=== PATIENT | male | born 1950 | race Caucasian/White ===

== ENCOUNTER 2017-09-01 11:25 | Emergency (ER) | payer BC, MEDICARE, OTHER ==
[~2017-09-01] VITALS: Ht 170.2 cm; Wt 77.1 kg
[~2017-09-01 11:25] MED LIST: CLON0.5T PO; LAMO5TAB3 PO; OXCA150T5 PO
--- NOTE | 2017-09-01 11:25 | NUR ---
C/O HYPERTENSION MANAGER WELDING AND LOW GRADE FEVER SINCE THIS AM. ETOH LAST NIGHT
[2017-09-01 12:29] LABS: BASOPHILS # (AUTO) 0.2 /CMM (0.0-0.2); BASOPHILS % (AUTO) 0.9 % (0.0-2.0); EOSINOPHILS % (AUTO) 0.2 % (0.0-6.0); HEMATOCRIT 41 % (39-51); HEMOGLOBIN 13.8 g/dL (13.5-17.5); LYMPHOCYTES # (AUTO) 1.3 /CMM (0.8-4.8); LYMPHOCYTES % (AUTO) 7.7 % (20.0-44.0); MEAN CORPUSCULAR HEMOGLOBIN 31 PG (26.0-33.0); MEAN CORPUSCULAR HGB CONC 34 g/dl (31.0-36.0); MEAN CORPUSCULAR VOLUME 90 fL (80-96); MONOCYTES % (AUTO) 5.9 % (2.0-12.0); NEUTROPHILS # (AUTO) 14.8 /CMM (1.8-8.9); NEUTROPHILS % (AUTO) 85.3 % (43.0-81.0); PLATELET COUNT (AUTO) 168 /CMM (150-450); RDW COEFFICIENT OF VARIATION 11.9 (11.5-15.0); RED BLOOD CELL COUNT(AUTO) 4.51 MIL/uL (4.5-6.0); WHITE BLOOD COUNT (AUTO) 17.3 K/uL (4.3-11.0)
[2017-09-01] MEDS ORDERED: IV NS 0.9% 1,000 ML BAG IV ONE (12:30)
[2017-09-01 12:40] LABS: CALCIUM, SERUM 9.3 mg/dL (8.5-10.1); CARBON DIOXIDE 25 mmol/L (21-32); CHLORIDE 101 mmol/L (98-107); CREATININE 1.2 mg/dL (0.6-1.3); GLUCOSE 115 mg/dL (74-106); POTASSIUM 3.7 mmol/L (3.5-5.1); SODIUM SERUM 136 mmol/L (136-145); UREA NITROGEN, BLOOD 24 mg/dL (7-18)
[2017-09-01 12:43] LABS: INR 0.89 (0.87-1.13); PROTHROMBIN TIME 9.3 SECS (9.5-12.7)
[2017-09-01 12:45] LABS: ALANINE AMINOTRANSFERASE 52 U/L (12-78); ALBUMIN 3.8 g/dL (3.4-5.0); ALKALINE PHOSPHATASE 58 U/L (46-116); ASPARTATE AMINOTRANSFERASE 44 U/L (15-37); BILIRUBIN,DIRECT 0.1 mg/dL (0.0-0.2); BILIRUBIN,TOTAL 0.7 mg/dL (0.2-1.0); TOTAL PROTEIN, SERUM 7.4 g/dL (6.4-8.2)
[2017-09-01 12:47] LABS: TROPONIN I < 0.017 ng/mL (0.00-0.056)
--- NOTE | 2017-09-01 12:58 | NUR ---
DUPLICATE ORDER FOR EKG DR GALVEZ AWARE
--- NOTE | 2017-09-01 13:19 | NUR ---
IV removed. Catheter intact and site benign. Pressure and 4x4 applied to site. No bleeding noted.
[2017-09-01 13:20] VITALS: BP 161/91
--- NOTE | 2017-09-01 13:20 | NUR ---
Patient discharged to home in stable condition. Written and verbal after care instructions given. Patient verbalizes understanding of instruction.
== END 2017-09-01 13:23 | disposition home or self-care (01) ==
LOC: ER 11:28
DX: J18.9 Pneumonia, unspecified organism (principal); R00.2 Palpitations; F10.10 Alcohol abuse, uncomplicated; I10 Essential (primary) hypertension; F17.200 Nicotine dependence, unspecified, uncomplicated
CPT/HCPCS: 36415; 71010; 80048; 80076; 84484; 85025; 85730; 93005 ×2; 96360; 99285; A4606 ×2; J7030; Z7610

== ENCOUNTER 2017-10-09 11:51 | Outpatient (CLI) | payer MEDICARE | END 2017-10-09 23:59 | disposition home or self-care (01) | LOC: RAD 11:51 | DX: I70.0 Atherosclerosis of aorta (principal) | CPT/HCPCS: 71046 ==

== ENCOUNTER 2018-01-05 12:59 | Emergency (ER) | payer MEDICARE, BC ==
[~2018-01-05] VITALS: Ht 165.1 cm; Wt 67.1 kg
[2018-01-05] MEDS ORDERED: ASPIRIN 325 MG TABLET ONE (13:20)
--- NOTE | 2018-01-05 13:25 | NUR ---
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 PT GOWNED AND PLACED ON CONT MONITORING. SKIN IS WARM AND NON DIAPHORETIC. RR EVEN AND UNLABORED. CALLED FOR STAT EKG. WILL CONT TO MONITOR
[2018-01-05] MEDS ORDERED: ASPIRIN 325 MG TABLET PO ONE (13:30)
[2018-01-05 13:35] LABS: BASOPHILS # (AUTO) 0.1 /CMM (0.0-0.2); BASOPHILS % (AUTO) 0.4 % (0.0-2.0); EOSINOPHILS % (AUTO) 0.2 % (0.0-6.0); HEMATOCRIT 39 % (39-51); HEMOGLOBIN 13.7 g/dL (13.5-17.5); LYMPHOCYTES # (AUTO) 1.8 /CMM (0.8-4.8); LYMPHOCYTES % (AUTO) 12.3 % (20.0-44.0); MEAN CORPUSCULAR HGB CONC 35 g/dl (31.0-36.0); MEAN CORPUSCULAR VOLUME 90 fL (80-96); MONOCYTES # (AUTO) 1.3 /CMM (0.1-1.30); MONOCYTES % (AUTO) 8.9 % (2.0-12.0); NEUTROPHILS # (AUTO) 11.5 /CMM (1.8-8.9); NEUTROPHILS % (AUTO) 78.2 % (43.0-81.0); PLATELET COUNT (AUTO) 189 /CMM (150-450); RDW COEFFICIENT OF VARIATION 13.3 (11.5-15.0); RED BLOOD CELL COUNT(AUTO) 4.38 MIL/uL (4.5-6.0); WHITE BLOOD COUNT (AUTO) 14.7 K/uL (4.3-11.0)
[2018-01-05 13:53] LABS: INR 0.96 (0.87-1.13)
[2018-01-05 14:13] LABS: CALCIUM, SERUM 9.1 mg/dL (8.5-10.1); CARBON DIOXIDE 24 mmol/L (21-32); CHLORIDE 103 mmol/L (98-107); CREATININE 1.1 mg/dL (0.6-1.3); GLUCOSE 96 mg/dL (74-106); POTASSIUM 3.8 mmol/L (3.5-5.1); SODIUM SERUM 139 mmol/L (136-145); UREA NITROGEN, BLOOD 22 mg/dL (7-18)
[2018-01-05 14:22] LABS: TROPONIN I < 0.017 ng/mL (0.00-0.056)
[2018-01-05 15:07] LABS: ALBUMIN 3.8 g/dL (3.4-5.0); BILIRUBIN,DIRECT 0.1 mg/dL (0.0-0.2); BILIRUBIN,TOTAL 0.5 mg/dL (0.2-1.0); TOTAL PROTEIN, SERUM 7.3 g/dL (6.4-8.2)
[2018-01-05 15:34] VITALS: BP 144/80
--- NOTE | 2018-01-05 15:34 | NUR ---
Patient does not wish to proceed with medical care recommended by Dr. saldana. Patient given information related to possible complications, up to and including , which could occur as a result of leaving the hospital at this time. Patient verbalizes understanding of risks involved due to leaving against medical advice. Patient has signed AMA form.
== END 2018-01-05 15:35 | disposition left against medical advice (07) ==
LOC: ER 13:07
DX: R07.89 Other chest pain (principal); I10 Essential (primary) hypertension; F17.200 Nicotine dependence, unspecified, uncomplicated; Z79.82 Long term (current) use of aspirin
CPT/HCPCS: 36415; 71045-TC; 80048-TC; 80076-TC; 83690-TC; 84484-TC; 85025-TC; 85730-TC; A4606; Z7610

== ENCOUNTER 2018-07-17 12:51 | Outpatient (CLI) | payer MEDICARE, BC | END 2018-07-17 23:59 | disposition home or self-care (01) | LOC: RAD 12:51 | DX: R07.81 Pleurodynia (principal) | CPT/HCPCS: 71100-TC ==

== ENCOUNTER 2019-01-22 11:07 | Outpatient (CLI) | payer MEDICARE, BC | END 2019-01-22 23:59 | disposition home or self-care (01) | LOC: CT 11:07 | DX: S09.90XA Unspecified injury of head, initial encounter (principal); G31.9 Degenerative disease of nervous system, unspecified; I67.2 Cerebral atherosclerosis; X58.XXXA Exposure to other specified factors, initial encounter; Y93.89 Activity, other specified; Y92.89 Other specified places as the place of occurrence of the external cause; Y99.8 Other external cause status | CPT/HCPCS: 70450-TC ==

== ENCOUNTER 2022-01-26 00:20 | Emergency (ER) | payer MEDICARE, BC ==
[~2022-01-26] VITALS: Ht 170.2 cm; Wt 79.4 kg
--- NOTE | 2022-01-26 00:35 | NUR ---
PATIENT BIBS C/O HIGH BP X1 WEEK +FATIGUE. PATIENT'S BP IS 185/92, HR OF 63. PATIENT ON ROOM AIR, BREATHING EVEN AND UNLABORED. NO RESPORTS OF PAIN. PATIENT CONNECTED TO BEDSIDE MONITOR. WILL CONTINUE TO MONITOR.
--- NOTE | 2022-01-26 00:45 | NUR ---
PATIENT REFUSES CT SCAN. EDUCATION ON IMPORTANCE OF CT SCAN PROVIDED BY DR. NAGEL. PATIENT STILL REFUSES.
--- NOTE | 2022-01-26 00:52 | NUR ---
DATABASE ADMINISTRATION MANAGER AT PT'S BEDSIDE
[2022-01-26] MEDS ORDERED: MORPHINE SULFATE INJ 2 MG/ML DISP.SYRIN ONE (00:53)
[2022-01-26] MEDS ORDERED: hydrALAZINE HCL IV 20 MG VIAL ONE (00:53)
[2022-01-26] MEDS ORDERED: MORPHINE SULFATE INJ 2 MG/ML DISP.SYRIN IV ONE (01:00)
[2022-01-26] MEDS ORDERED: hydrALAZINE HCL IV 20 MG VIAL IV ONE (01:00)
--- NOTE | 2022-01-26 01:01 | NUR ---
L HAND #20G S/L; PATENT AND INTACT. BLOOD COLLECTED AND SENT TO LAB
[2022-01-26 01:07] LABS: BASOPHILS % (AUTO) 0.3 % (0.0-2.0); EOSINOPHILS % (AUTO) 1.5 % (0.0-6.0); HEMATOCRIT 40 % (39-51); HEMOGLOBIN 13.5 g/dL (13.5-17.5); LYMPHOCYTES # (AUTO) 3.3 K/uL (0.8-4.8); LYMPHOCYTES % (AUTO) 36.1 % (20.0-44.0); MEAN CORPUSCULAR HGB CONC 34 g/dl (31.0-36.0); MEAN CORPUSCULAR VOLUME 88 fL (80-96); MONOCYTES # (AUTO) 0.6 K/uL (0.1-1.30); MONOCYTES % (AUTO) 6.2 % (2.0-12.0); NEUTROPHILS # (AUTO) 5.1 K/uL (1.8-8.9); NEUTROPHILS % (AUTO) 55.9 % (43.0-81.0); PLATELET COUNT (AUTO) 221 K/uL (150-450); RED BLOOD CELL COUNT(AUTO) 4.58 MIL/uL (4.5-6.0); WHITE BLOOD COUNT (AUTO) 9.1 K/uL (4.3-11.0)
[2022-01-26 01:15] VITALS: BP 155/88
[2022-01-26 01:29] LABS: ALANINE AMINOTRANSFERASE 33 U/L (12-78); ALBUMIN 3.7 g/dL (3.4-5.0); ALKALINE PHOSPHATASE 55 U/L (46-116); ASPARTATE AMINOTRANSFERASE 16 U/L (15-37); BILIRUBIN,DIRECT 0.1 mg/dL (0.0-0.2); BILIRUBIN,TOTAL 0.2 mg/dL (0.2-1.0); CALCIUM, SERUM 8.6 mg/dL (8.5-10.1); CARBON DIOXIDE 26 mmol/L (21-32); CHLORIDE 104 mmol/L (98-107); CREATININE 1.1 mg/dL (0.6-1.3); GLUCOSE 113 mg/dL (74-106); POTASSIUM 3.9 mmol/L (3.5-5.1); SODIUM SERUM 136 mmol/L (136-145); TOTAL PROTEIN, SERUM 7.2 g/dL (6.4-8.2); UREA NITROGEN, BLOOD 19 mg/dL (7-18)
--- NOTE | 2022-01-26 01:45 | NUR ---
Patient does not wish to proceed with medical care recommended by Dr. Lee. Patient given information related to possible complications, up to and including , which could occur as a result of leaving the hospital at this time. Patient verbalizes understanding of risks involved due to leaving against medical advice. Patient has refused to sign AMA form. IV removed. Catheter intact and site benign. Pressure and 4x4 applied to site. No bleeding noted.
== END 2022-01-26 01:53 | disposition left against medical advice (07) ==
LOC: ER 00:26
DX: I10 Essential (primary) hypertension (principal); F17.200 Nicotine dependence, unspecified, uncomplicated; Z79.899 Other long term (current) drug therapy
CPT/HCPCS: 36415; 80048; 80076; 84484; 85025; 85730; 93005; 96374; 99284; J0360; J2270

== ENCOUNTER 2022-02-20 12:28 | Outpatient (CLI) | payer MEDICARE, BC | END 2022-02-20 23:59 | disposition home or self-care (01) | LOC: RAD 12:28 | DX: J12.9 Viral pneumonia, unspecified (principal) | CPT/HCPCS: 71045-TC ==